=== PATIENT | female | born 1950 | race Caucasian/White ===

== ENCOUNTER → 2016-07-12 | Outpatient (CLI) | payer BC, OTHER ==
--- NOTE | 2016-07-12 10:53 | US ---
EXAMINATION TYPE: US gallbladder DATE OF EXAM: 07/12/2016 10:09 AM COMPARISON: NONE CLINICAL HISTORY: K80.20 CHOLELITHIASIS. Patient c/o epigastric pain and gas; on meds for diabetes. EXAM MEASUREMENTS: Liver Length: 19.4 cm Gallbladder Wall: 0.2 cm CBD: 0.66cm Right Kidney: cm Pancreas: hyperechoic Liver: fatty (hyperechoic) and enlarged as is >18.0cm Gallbladder: wnl Evidence for sonographic Tracy's sign: No CBD: wnl Right Kidney: wnl IMPRESSION: 1. Fatty hepatic infiltration with hepatomegaly.
== END | disposition home or self-care (01) ==
LOC: RADUSWWP 09:40
PROVIDERS: ATTEND Family Medicine
DX: K76.0 Fatty (change of) liver, not elsewhere classified (principal)
CPT/HCPCS: 76705

== ENCOUNTER → 2016-10-22 | Day surgery (SDC) | payer BC, OTHER ==
[2016-10-21 11:29] VITALS: BMI 35.6
[~2016-10-22] MED LIST: KETAMINE 10 MG/ML 20 ML VIAL ONE; LACTATED RINGERS 1,000 ML IV ONE; LACTATED RINGERS 1,000 ML IV SCH; MIDAZOLAM 2 MG/2 ML VIAL ONE; ONDANSETRON 4 MG/2 ML VIAL ONE; PROPOFOL 10 MG/ML 20 ML VIAL IV ONE
[2016-10-22 07:09] VITALS: RESP 18; TEMP 100.5
[2016-10-22 07:22] LABS: Glucose,Whole Blood 141 mg/dL (75-99)
--- NOTE | 2016-10-22 07:54 | P.GSHP ---
History of Present Illness H&P Date: 10/22/16 Chief Complaint: GERD, epigastric pain This is a 66-year-old female who presents today for EGD. She's had issues with GERD and epigastric pain. Past Medical History Past Medical History: Diabetes Mellitus, GERD/Reflux, GI Bleed, Hyperlipidemia, Hypertension, Liver Disease, Sleep Apnea/CPAP/BIPAP Additional Past Medical History / Comment(s): BENIGN MURMUR. FATTY LIVER. USES CPAP. PLANTAR FASCIITIS. History of Any Multi-Drug Resistant Organisms: None Reported Past Surgical History: Section Additional Past Surgical History / Comment(s): D & C. COLONOSCOPY. THYROID NODULE REMOVED (BENIGN). EXC LIPOMA. COSMETIC UNDEREYE SURG, NECK LIPO. Past Anesthesia/Blood Transfusion Reactions: Previous Problems w/ Anesthesia Additional Past Anesthesia/Blood Transfusion Reaction / Comment(s): DIFF WAKING UP, BREATHING AFTER THYROID NODULE OR. Smoking Status: Former smoker - Past Family History Mother Family Medical History: Cancer Medications and Allergies Home Medications Medication Instructions Recorded Confirmed Type Escitalopram [Lexapro] 20 mg PO HS 05/21/14 10/22/16 History LORazepam [Ativan] 1 mg PO HS PRN 05/21/14 10/22/16 History Metoprolol Succinate [Toprol XL] 50 mg PO HS 05/21/14 10/22/16 History Omeprazole [Omeprazole] 40 mg PO DAILY 05/21/14 10/22/16 History Quinapril HCl 40 mg PO DAILY 05/21/14 10/22/16 History Simvastatin [Simvastatin] 40 mg PO HS 05/21/14 10/22/16 History metFORMIN HCL [Metformin HCl ER] 1,000 mg PO BID 05/21/14 10/22/16 History sitaGLIPtin [Januvia] 100 mg PO HS 05/21/14 10/22/16 History Acetaminophen [Tylenol Extra 1,000 mg PO Q4-6H PRN 10/21/16 10/22/16 History Strength] Aspirin [Adult Low Dose Aspirin EC] 81 mg PO DAILY 10/21/16 10/21/16 History Dulaglutide [Trulicity] 0.75 mg SQ TH@1200 10/21/16 10/22/16 History Multivitamins, Thera [Multivitamin 1 tab PO DAILY 10/21/16 10/22/16 History (formulary)] Allergies Allergy/AdvReac Type Severity Reaction Status Date / Time adhesive tape AdvReac Itching Verified 10/22/16 07:09 hydrocodone AdvReac Itching Verified 10/22/16 07:09 morphine AdvReac Itching Verified 10/22/16 07:09 Surgical - Exam Vital Signs Temp Pulse Resp BP Pulse Ox 100.5 F H 75 18 157/75 95 10/22/16 07:05 10/22/16 07:05 10/22/16 07:05 10/22/16 07:05 10/22/16 07:05 - General well developed, no distress - Eyes PERRL - ENT normal pinna - Neck no masses - Respiratory normal expansion - Cardiovascular Rhythm: regular - Abdomen Abdomen: soft, non tender Results - Labs Abnormal Lab Results - Last 24 Hours (Table) 10/22/16 Range/Units 07:09 POC Glucose (mg/dL) 141 H (75-99) mg/dL Assessment and Plan Plan: GERD, epigastric pain. We'll perform EGD.
--- NOTE | 2016-10-22 08:05 | P.OP ---
Date of Procedure: 10/22/16 Preoperative Diagnosis: Epigastric pain gerd Postoperative Diagnosis: Mild antral gastritis Retained gastric food Small hiatal hernia Mild esophagitis Procedure(s) Performed: EGD Implants: Anesthesia: MAC Surgeon: Doc Mayen Pathology: other (Antrum, esophagus) Condition: stable Disposition: PACU Indications for Procedure: Operative Findings: Description of Procedure: The patient's placed on the endoscopy table in the lateral position. She received IV sedation. The gastric was placed oropharynx passed in the esophagus and into the stomach. Scope was then placed through the pylorus. First and second portion of duodenum appeared normal. Scope was then brought back the antrum this. Mildly inflamed. A biopsies performed. Scope was unretroflexed and remainder stomach appeared normal. There is a large amount of retained gastric food. The GE junction was at 38 7 is. There is a small hiatal hernia. The distal esophagus. Inflamed. A biopsies performed. The proximal esophagus appeared normal. Scope was withdrawn for patient.
[2016-10-22 08:42] LABS: Glucose,Whole Blood 135 mg/dL (75-99)
[2016-10-22 10:36] VITALS: BP 131/67; PULSE 88
--- NOTE | 2016-10-22 13:24 | NM ---
EXAMINATION TYPE: NM hepatobiliary w EF DATE OF EXAM: 10/22/2016 COMPARISON: NONE INDICATION: Abdomen pain TECHNIQUE: After the intravenous administration of 5.5 mCi Tc 99m Mebrofenin hepatobiliary scintigrap hy is performed. Images were obtained immediately post injection. FINDINGS: There is prompt uptake and excretion of radiotracer by the liver. Extrahepatic ducts are identified at 11 minutes. The gallbladder is visualized within 26 minutes. Small bowel activity is noted within 18 minutes. At one hour 8 ounces of oral ensure plus is given to mimic CCK and gallbladder ejection fraction is c alculated at 53 %, which is in the normal range. (Normal >35% and <80%.). IMPRESSION: 1. Normal hepatobiliary scan
== END | disposition home or self-care (01) ==
LOC: ORWHC2ENDO 06:44
PROVIDERS: ATTEND Surgery
DX: K29.50 Unspecified chronic gastritis without bleeding (principal); K21.0 Gastro-esophageal reflux disease with esophagitis; E11.9 Type 2 diabetes mellitus without complications; I10 Essential (primary) hypertension; K44.9 Diaphragmatic hernia without obstruction or gangrene; E78.5 Hyperlipidemia, unspecified; G47.30 Sleep apnea, unspecified; K76.9 Liver disease, unspecified; Z88.5 Allergy status to narcotic agent; Z79.82 Long term (current) use of aspirin; Z79.899 Other long term (current) drug therapy; Z79.84 Long term (current) use of oral hypoglycemic drugs; Z99.89 Dependence on other enabling machines and devices; Z87.891 Personal history of nicotine dependence
CPT/HCPCS: 88305; 88342; 78226; 43239; A9537; J2250; J2405; J2704

== ENCOUNTER 2016-12-03 17:40 | Emergency (ER) | payer BC, OTHER ==
[2016-12-03] MEDS ORDERED: SODIUM CHLORIDE 0.9% 1,000 ML IV ONE (18:23)
[2016-12-03] MEDS ORDERED: diphenhydrAMINE 50 MG/ML 1 ML VIAL IVP STA (18:23)
[2016-12-03] MEDS ORDERED: METOCLOPRAMIDE 5 MG/ML 2 ML VIAL IVP STA (18:23)
--- NOTE | 2016-12-03 18:26 | ED ---
Nausea/Vomiting/Diarrhea HPI - General Chief complaint: Nausea/Vomiting/Diarrhea Stated complaint: NVD Time Seen by Provider: 12/03/16 17:54 Source: EMS Mode of arrival: EMS Limitations: no limitations - History of Present Illness Initial comments: Patient is a 66-year-old female with a history of gastroparesis who presents via EMS for nausea vomiting and diarrhea since this morning. Patient states that this happens to her once or twice a year. She normally takes Zofran for her symptoms however today the Zofran did not help. Patient states that she has thrown up 3 times today. Her diarrhea is characterized as just loose stool. Patient cannot think of any inciting incident. She does not identify any aggravating or alleviating factors. Timing is intermittent. MD complaint: nausea, vomiting, diarrhea - Related Data Home Medications Medication Instructions Recorded Confirmed Escitalopram [Lexapro] 20 mg PO DAILY 05/21/14 12/03/16 LORazepam [Ativan] 1 mg PO HS PRN 05/21/14 12/03/16 Metoprolol Succinate [Toprol XL] 50 mg PO DAILY 05/21/14 12/03/16 Omeprazole [Omeprazole] 20 mg PO DAILY 05/21/14 12/03/16 Quinapril HCl 40 mg PO DAILY 05/21/14 12/03/16 metFORMIN HCL [Metformin HCl ER] 1,000 mg PO BID 05/21/14 12/03/16 sitaGLIPtin [Januvia] 100 mg PO HS 05/21/14 12/03/16 Acetaminophen [Tylenol Extra 1,000 mg PO Q4-6H PRN 10/21/16 12/03/16 Strength] Dulaglutide [Trulicity] 0.75 mg SQ TH@1200 10/21/16 12/03/16 Simvastatin 40 mg PO HS 12/03/16 12/03/16 Allergies Allergy/AdvReac Type Severity Reaction Status Date / Time adhesive tape AdvReac Itching Verified 12/03/16 19:00 hydrocodone AdvReac Itching Verified 12/03/16 19:00 morphine AdvReac Itching Verified 12/03/16 19:00 Review of Systems ROS Statement: Those systems with pertinent positive or pertinent negative responses have been documented in the HPI. ROS Other: All systems not noted in ROS Statement are negative. Constitutional: Denies: fever, chills Eyes: Denies: vision change ENT: Denies: ear pain, throat pain Respiratory: Denies: cough Cardiovascular: Denies: chest pain Endocrine: Denies: fatigue Gastrointestinal: Reports: nausea, vomiting, diarrhea. Denies: abdominal pain Genitourinary: Denies: dysuria Musculoskeletal: Denies: back pain Skin: Denies: rash Neurological: Denies: weakness Past Medical History Past Medical History: Diabetes Mellitus, GERD/Reflux, GI Bleed, Hyperlipidemia, Hypertension, Liver Disease, Sleep Apnea/CPAP/BIPAP Additional Past Medical History / Comment(s): BENIGN MURMUR. FATTY LIVER. USES CPAP. PLANTAR FASCIITIS. History of Any Multi-Drug Resistant Organisms: None Reported Past Surgical History: Section Additional Past Surgical History / Comment(s): D & C. COLONOSCOPY. THYROID NODULE REMOVED (BENIGN). EXC LIPOMA. COSMETIC UNDEREYE SURG, NECK LIPO. Past Anesthesia/Blood Transfusion Reactions: Previous Problems w/ Anesthesia Additional Past Anesthesia/Blood Transfusion Reaction / Comment(s): DIFF WAKING UP, BREATHING AFTER THYROID NODULE OR. Past Psychological History: Anxiety, Depression Smoking Status: Former smoker Past Alcohol Use History: None Reported Past Drug Use History: None Reported - Past Family History Mother Family Medical History: Cancer General Exam Limitations: no limitations General appearance: alert, in no apparent distress Head exam: Present: atraumatic, normocephalic Eye exam: Present: normal appearance ENT exam: Present: normal exam Neck exam: Present: normal inspection Respiratory exam: Present: normal lung sounds bilaterally Cardiovascular Exam: Present: regular rate, normal rhythm, normal heart sounds GI/Abdominal exam: Present: soft. Absent: distended, tenderness, guarding Rectal exam: Present: deferred Extremities exam: Present: normal inspection Back exam: Present: normal inspection Neurological exam: Present: alert, oriented X3 Psychiatric exam: Present: normal affect, normal mood Skin exam: Present: warm, dry, intact Course Vital Signs 12/03/16 12/03/16 17:44 19:14 Temperature 97.9 F Pulse Rate 73 83 Respiratory 20 18 Rate Blood Pressure 138/61 159/70 O2 Sat by Pulse 98 100 Oximetry Medical Decision Making - Medical Decision Making Vision presents with a one-day history of nausea, vomiting, diarrhea. On initial evaluation, vital signs are stable. The patient states she is nauseated but has not had any episodes of vomiting while in the emergency department. Given the short duration and 3 episodes of vomiting, I'm not concerned at this point for dehydration or electrolyte abnormalities. Patient does not admit to any abdominal pain therefore I think pathologies like pancreatitis or cholecystitis or less likely. Patient will receive Reglan and Benadryl along with 1 L of IV fluids. 7:29 PM On reevaluation, the patient states that her symptoms are improving. EKG performed at 7:10 PM shows normal sinus rhythm at a rate of 84 bpm. Segments appear to be within normal limits. Current EKG is similar to previous study performed on 12/17/2015. 7:48 PM Reevaluation, patient states that her symptoms are better and she would like to go home. At this point, patient is stable for outpatient management. I will prescribe her Reglan for management of nausea and vomiting. She is instructed to follow-up with her primary care doctor or to return to the emergency department if symptoms worsen or change in any way. At this time, all of her questions are answered to the best of my ability. Patient stable for discharge Disposition Clinical Impression: Nausea and vomiting in adult Disposition: HOME SELF-CARE Condition: Good Instructions: Acute Nausea and Vomiting (ED) Referrals: Deven Montesinos DO [Primary Care Provider] - 1-2 days
[2016-12-03 19:21] VITALS: RESP 18
[2016-12-03 20:10] VITALS: BP 150/68; PULSE 87; TEMP 98.6
== END 2016-12-03 20:10 | disposition home or self-care (01) ==
LOC: EC 17:40
DX: R11.2 Nausea with vomiting, unspecified (principal); R19.7 Diarrhea, unspecified; E78.5 Hyperlipidemia, unspecified; I10 Essential (primary) hypertension; E11.43 Type 2 diabetes mellitus with diabetic autonomic (poly)neuropathy; K31.84 Gastroparesis; K21.9 Gastro-esophageal reflux disease without esophagitis; F32.9 Major depressive disorder, single episode, unspecified; F41.9 Anxiety disorder, unspecified; Z87.891 Personal history of nicotine dependence; Z88.5 Allergy status to narcotic agent; Z91.048 Other nonmedicinal substance allergy status; Z79.84 Long term (current) use of oral hypoglycemic drugs; Z79.899 Other long term (current) drug therapy
CPT/HCPCS: 99284; 96374; 96375; 96361; 93005; J1200; J2765